=== PATIENT | female | born 1960 | race Caucasian/White ===

== ENCOUNTER 2022-01-18 10:59 | Outpatient (CLI) | payer OTHER ==
[2022-01-18 23:07] LABS: SARS-CoV-2 PCR by NAA Not Detected (NotDetected)
== END 2022-01-18 11:00 | disposition home or self-care (01) ==
LOC: CSHLAB 10:59
PROVIDERS: ATTEND Internal Medicine Gastroenterology
DX: Z20.822 Contact with and (suspected) exposure to COVID-19 (principal)
CPT/HCPCS: U0003; U0005

== ENCOUNTER 2022-01-21 09:34 | Day surgery (SDC) | payer OTHER ==
[2022-01-19 13:53] VITALS: BMI 25.8
[2022-01-21] MEDS ORDERED: Lidocaine 1% MPF 2 ML VIAL ONE (10:44)
[2022-01-21] MEDS ORDERED: Ondansetron PF 4 MG/2 ML Vial ONE (11:17)
[2022-01-21] MEDS ORDERED: PROPOFOL 20 ML ONE ×5 (11:18→12:09)
[2022-01-21] MEDS ORDERED: Lidocaine 1% PF 5 ML VIAL ONE (11:18)
[2022-01-21] MEDS ORDERED: Midazolam HCl 2 mg/2 ml Vial ONE (11:31)
== END 2022-01-21 12:55 | disposition home or self-care (01) ==
LOC: CSHSDC 09:34
PROVIDERS: ATTEND Internal Medicine Gastroenterology
DX: K25.9 Gastric ulcer, unspecified as acute or chronic, without hemorrhage or perforation (principal); K29.70 Gastritis, unspecified, without bleeding; K63.5 Polyp of colon; K63.89 Other specified diseases of intestine; K64.9 Unspecified hemorrhoids; I10 Essential (primary) hypertension; E03.9 Hypothyroidism, unspecified; F41.9 Anxiety disorder, unspecified
CPT/HCPCS: 88305; J2250; J2405; J2704